=== PATIENT | male | born 1965 | race Caucasian/White ===

== ENCOUNTER 2019-10-09 03:06 | Emergency (ER) | payer MEDICAID, OTHER ==
[~2019-10-09] VITALS: Ht 188 cm; Wt 104.3 kg
[2019-10-09 04:19] LABS: Basophils # (auto) 0 10 ^3/uL (0-0.2); Basophils % (auto) 0.3 % (0.0-2.0); Eosinophils # (auto) 0.1 10 ^3/uL (0-0.8); Eosinophils % (auto) 0.5 % (0.0-7.0); Hematocrit 42.7 % (41.0-53.0); Hemoglobin 14.3 g/dL (13.5-17.5); Lymphocytes # (auto) 2.1 10 ^3/uL (0.4-5.4); Lymphocytes % (auto) 14.5 % (10.0-50.0); Mean Corpuscular Hemoglobin 31.8 pg (28.0-32.0); Mean Corpuscular Hgb Conc. 33.4 g/dL (32.0-36.0); Mean Corpuscular Volume 95.2 fL (80.0-100.0); Monocytes # (auto) 0.8 10 ^3/uL (0-1.3); Monocytes % (auto) 5.9 % (0.0-12.0); Neutrophils # (auto) 11.2 10 ^3/uL (1.6-8.6); Neutrophils % (auto) 78.8 % (37.0-80.0); Platelet Count (auto) 275 10^3/uL (140-450); Red Blood Cells 4.49 10^6/uL (4.5-5.90); Red Cell Distribution Width 13.7 % (11.8-14.3); White Blood Cell 14.3 10^3/uL (4.4-10.8)
[2019-10-09 04:40] LABS: Albumin 4.2 g/dL (3.4-5.0); BUN/Creatinine Ratio 13.4; Calcium 9.5 mg/dL (8.5-10.1)
[2019-10-09 04:43] LABS: Bilirubin, Total 0.9 mg/dL (0.2-1.0)
[2019-10-09 04:44] LABS: Lactic Acid w/Reflex 7.3 mmol/L (0.4-2.0)
[2019-10-09] MEDS ORDERED: cloNIDine HCL 0.1 MG TAB PO ONE ×2 (04:45→05:15)
[2019-10-09] MEDS ORDERED: POTASSIUM EFFERVESENT TAB 25 MEQ PO ONE (05:00)
[2019-10-09] MEDS ORDERED: SODIUM CHLORIDE 0.9% 1,000 ML IV ONE ×2 (05:00→05:45)
[2019-10-09] MEDS ORDERED: cefTRIAXone 1GM/50ML D5W 50 ML IV ONE (06:15)
[2019-10-09 07:04] LABS: Urine Bacteria NONE SEEN /hpf (None Seen); Urine Blood Negative /uL (Negative); Urine Specific Gravity 1.014 (1.001-1.035); Urine WBC 1 /hpf (0 - 3)
[2019-10-09 07:18] LABS: Alcohol, Urine < 3.0 mg/dL (0-5); Amphetamine Screen, Urine NEGATIVE (NEGATIVE); Barbiturate Scree,Urine NEGATIVE (NEGATIVE); Benzodiazephine Screen, Urine POSITIVE (NEGATIVE); Cannabinoid Screen, Urine NEGATIVE (NEGATIVE); Cocaine Screen, Urine NEGATIVE (NEGATIVE); Opiate Scree,Urine NEGATIVE (NEGATIVE); Phencyclidine Screen, Urine NEGATIVE (NEGATIVE)
[2019-10-09] MEDS ORDERED: LABETALOL HCL 5 MG/ML 4ML SYRINGE IV ONE (08:45)
[2019-10-09 10:45] VITALS: BP 167/89
== END 2019-10-09 10:56 | disposition short-term general hospital (02) ==
LOC: ER 03:06 → EDBD 03:06 → ER 10:56
DX: S80.01XA Contusion of right knee, initial encounter (principal); R56.9 Unspecified convulsions; I10 Essential (primary) hypertension; E87.6 Hypokalemia; R73.9 Hyperglycemia, unspecified
CPT/HCPCS: 36415; 70450; 71045; 80053; 80307; 81001; 83605; 84484; 85025; 87040; 96365; 96366; 96372; 99285; J0696; J3490; J7030